=== PATIENT | male | born 1955 | race Caucasian/White ===

== ENCOUNTER 2020-05-06 07:58 | Day surgery (SDC) | payer BC ==
[2020-05-01 10:17] VITALS: BMI 26.2
--- OUTSIDE RECORDS SUMMARY | 2020-05-06 08:02 | XMS ---
:1955 [facility] Support Name Relationship Address Phone RE Unavailable Unavailable Unavailable KRISTEN SANON [address] [facility] [place] [address] Re-disclosure Warning The records that you are about to access may contain information from federally- assisted alcohol or drug abuse programs. If such information is present, then the following federally mandated warning applies: This information has been disclosed to you from records protected by federal confidentiality rules (42 CFR part 2). The federal rules prohibit you from making any further disclosure of this information unless further disclosure is expressly permitted by the written consent of the person to whom it pertains or as otherwise permitted by 42 CFR part 2. A general authorization for the release of medical or other information is NOT sufficient for this purpose. The Federal rules restrict any use of the information to criminally investigate or prosecute any alcohol or drug abuse patient.The records that you are about to access may contain highly sensitive health information, the redisclosure of which is protected by Article 27-F of the [facility] Public Health law. If you continue you may haveaccess to information: Regarding HIV / AIDS; Provided by facilities licensed or operated by the [facility] Office of Mental Health; or Provided by the [facility] Office for People With Developmental Disabilities. If such information is present, then the following [facility] mandated warning applies: This information has been disclosed to you from confidential records which are protected by state law. State law prohibits you from making any further disclosure of this information without the specific written consent of the person to whom it pertains, or as otherwise permitted by law. Any unauthorized further disclosure in violation of state law may result in a fine or alf sentence or both. A general authorization for the release of medical or other information is NOT sufficient authorization for further disclosure. Insurance Providers Payer name Policy type / Policy ID Covered Covered democrat's Policy Plan Coverage type democrat ID relationship to Hall Information [facility] [id number] Results ID Date Data Source [id number] 05/02/2020 09:20:00 AM EDT [facility] Name Value Range Interpretation Description Data Sup porting Code Source(s) Document(s ) SARS [facility] coronavirus 2 RNA This lab was ordered by CORBY ELDER and reported by [facility]. Procedure
[2020-05-06 09:28] VITALS: TEMP 98.2
[2020-05-08 09:27] VITALS: BP 116/74; PULSE 74
--- NOTE | 2020-05-12 11:36 | PATH ---
Surgical Pathology Report Patient Name: PORFIRIO BHATIA [facility]. Rec. #: [id number] /Age/Gender: 1955 (Age: 65) / M Account: [id number] Location: [facility] Taken: 05/06/2020 Received: 05/06/2020 Reported: 05/12/2020 Physicians: Larry Gu M.D. Specimen(s) Received POLYP PROXIMAL LEFT COLON Clinical History Family history of colon cancer and polyps Postoperative diagnosis: Colon polyp Final Diagnosis PROXIMAL LEFT COLON, POLYP, BIOPSY: SESSILE SERRATED POLYP. Electronically Signed Gwen Anders M.D. Gross Description Received in formalin, labeled "biopsy polyp proximal left colon" are 2 payne, irregular portions of soft tissue measuring 0.2 and 0.3 cm. in greatest dimension. The specimens are submitted in toto in one cassette. /05/07/2020 saudi05/07/2020
== END 2020-05-06 10:15 | disposition home or self-care (01) ==
LOC: FASU-ENDO 07:58
PROVIDERS: ATTEND Internal Medicine Gastroenterology
PROC: 0DBM8ZX Excision of Descending Colon, Via Natural or Artificial Opening Endoscopic, Diagnostic (ICD-10-PCS; principal; 2020-05-06 09:00)
DX: Z12.11 Encounter for screening for malignant neoplasm of colon (principal); Z80.0 Family history of malignant neoplasm of digestive organs; Z83.71 Family history of colonic polyps; K57.30 Diverticulosis of large intestine without perforation or abscess without bleeding; D12.4 Benign neoplasm of descending colon
CPT/HCPCS: 88305-TC

== ENCOUNTER 2021-04-18 13:34 | Emergency (ER) | payer BC ==
[2021-04-18 13:47] VITALS: BP 147/89; PULSE 85; TEMP 97.8; BMI 26.0
[2021-04-18] MEDS ORDERED: IBUPROFEN 600 MG TABLET (FP) PO ONE ×2 (14:16→14:26)
[2021-04-18 14:41] LABS: PH,URINE 5.5 (5.0-8.0); URINE APPEARANCE CLEAR; URINE BILIRUBIN NEGATIVE (NEGATIVE); URINE COLOR YELLOW; URINE GLUCOSE (UA) NEGATIVE (NEGATIVE); URINE KETONE NEGATIVE (NEGATIVE); URINE LEUK ESTERASE NEGATIVE (NEGATIVE); URINE NITRITE NEGATIVE (NEGATIVE); URINE PROTEIN NEGATIVE (NEGATIVE)
== END 2021-04-18 15:44 | disposition home or self-care (01) ==
LOC: JER 13:34
DX: N50.82 Scrotal pain (principal); I86.1 Scrotal varices
CPT/HCPCS: 76870-TC; 81003; 87086; 99284-25